=== PATIENT | female | born 1975 | race Caucasian/White ===

== ENCOUNTER → 2016-12-14 | Outpatient (CLI) | payer BC ==
[~2016-12-14] MED LIST: COLACE 100100 MG/CAP PO; MOTRIN 800800 MG/TAB PO; NORCO 325 MG-51 TAB PO; PERCOCET 325 MG1 TA3 PO; PRENATAL1 TA1 PO
== END ==
LOC: COL.RAD 09:45
DX: M76.821 Posterior tibial tendinitis, right leg (principal)

== ENCOUNTER 2017-04-02 01:02 | Emergency (ER) | payer BC ==
[~2017-04-02] VITALS: Ht 175.3 cm; Wt 112.7 kg
[~2017-04-02 01:02] MED LIST changes: -MOTRIN 800800 MG/TAB PO; -NORCO 325 MG-51 TAB PO; -PERCOCET 325 MG1 TA3 PO
[2017-04-02 01:05] VITALS: TEMP 98.5
[2017-04-02] MEDS ORDERED: NORCO 325 MG-51 TAB PO (01:08)
[2017-04-02] MEDS ORDERED: MOTRIN 800800 MG/TAB PO (01:09)
[2017-04-02] MEDS ORDERED: PERCOCET 325 MG1 TA3 PO (02:24)
[2017-04-02 02:45] VITALS: BP 127/51; PULSE 81
== END 2017-04-02 02:45 | disposition home or self-care (01) ==
LOC: COL.ER 01:02
DX: G89.18 Other acute postprocedural pain (principal); M25.571 Pain in right ankle and joints of right foot
CPT/HCPCS: J1170; J1885; J7040

== ENCOUNTER 2017-05-29 17:08 | Emergency (ER) | payer BC ==
[~2017-05-29] VITALS: Ht 175.3 cm; Wt 109.1 kg
[~2017-05-29 17:08] MED LIST changes: +MOTRIN 800800 MG/TAB PO; +NORCO 325 MG-51 TAB PO; +PERCOCET 325 MG1 TA3 PO
[2017-05-29 17:17] VITALS: BP 144/58; TEMP 97.8
[2017-05-29 19:12] VITALS: PULSE 78
== END 2017-05-29 19:13 | disposition home or self-care (01) ==
LOC: COL.ER 17:08
DX: H57.8 Other specified disorders of eye and adnexa (principal); Z77.098 Contact with and (suspected) exposure to other hazardous, chiefly nonmedicinal, chemicals